=== PATIENT | female | born 1955 | race Caucasian/White ===

== ENCOUNTER 2017-03-20 19:56 | Emergency (ER) | payer MEDICAID ==
[~2017-03-20] VITALS: Ht 165.1 cm; Wt 95.3 kg
[2017-03-20 20:05] VITALS: BP 157/77
--- NOTE | 2017-03-20 21:01 | NUR ---
TO ER BED 5
--- NOTE | 2017-03-20 21:04 | NUR ---
PATIENT PRESENTS TO ED WITH C/O RIGHT FLANK PAIN X 1 DAY. . PT DENIES N/V/D; SKIN IS PINK/WARM/DRY; AAOX4 WITH EVEN AND STEADY GAIT; LUNGS CLEAR BL; HR EVEN AND REGULAR; PT DENIES ANY FEVER, CP, SOB, OR COUGH AT THIS TIME; PATIENT STATES PAIN OF 7/10 AT THIS TIME; VSS; PATIENT POSITIONED FOR COMFORT; HOB ELEVATED; BEDRAILS UP X2; BED DOWN. ER MD MADE AWARE OF PT STATUS.
[2017-03-20] MEDS ORDERED: NACL 0.9% 500 ML IV ONE ×2 (21:44)
[2017-03-20] MEDS ORDERED: ONDANSETRON 4 MG/2 ML VIAL IVP ONE (21:45)
[2017-03-20] MEDS ORDERED: KETOROLAC 30 MG/ML VIAL IVP ONE (21:45)
[2017-03-20 23:35] VITALS: BP 136/82
--- NOTE | 2017-03-20 23:35 | NUR ---
IV removed, catheter intact and site benign. Applied folded 4x4 gauze and tape to stop bleeding.
--- NOTE | 2017-03-20 23:35 | NUR ---
Patient discharged with v/s stable. Written and verbal after care instructions given and explained. Patient alert, oriented and verbalized understanding of instructions. Ambulatory with steady gait. All questions addressed prior to discharge. ID band removed. Patient advised to follow up with PMD. Rx of ULTRAM 50MG given. Patient educated on indication of medication including possible reaction and side effects. Opportunity to ask questions provided and answered.
== END 2017-03-20 23:36 | disposition home or self-care (01) ==
LOC: MED 19:56
DX: K43.9 Ventral hernia without obstruction or gangrene (principal); R03.0 Elevated blood-pressure reading, without diagnosis of hypertension
CPT/HCPCS: 74176; 81002; 96361; 96374; 96375; 99284; J1885; J2405; J7030